=== PATIENT | female | born 1990 | race Two or more races ===

== ENCOUNTER 2020-10-27 13:08 | Emergency (ER) | payer MEDICAID ==
[~2020-10-27] VITALS: Ht 160 cm; Wt 68.0 kg
[2020-10-27 14:05] VITALS: BP 127/85
[2020-10-27] MEDS ORDERED: KETOROLAC TROMETH 60MG/2ML VIAL IM ONE (14:15)
== END 2020-10-27 15:41 | disposition home or self-care (01) ==
LOC: ER 13:08
DX: S93.401A Sprain of unspecified ligament of right ankle, initial encounter (principal); J45.909 Unspecified asthma, uncomplicated; F17.210 Nicotine dependence, cigarettes, uncomplicated; W22.8XXA Striking against or struck by other objects, initial encounter; Y93.89 Activity, other specified; Y92.89 Other specified places as the place of occurrence of the external cause; Y99.8 Other external cause status
CPT/HCPCS: 73610; 96372; 99283; J1885